=== PATIENT | female | born 1985 | race Caucasian/White ===

== ENCOUNTER 2017-03-13 11:04 | Emergency (ER) | payer OTHER ==
[~2017-03-13] VITALS: Ht 152.4 cm; Wt 55.0 kg
[2017-03-13 11:15] VITALS: BP 153/81; PULSE 121; RESP 18; TEMP 99.2; O2SAT 98
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
[2017-03-13] MEDS ORDERED: LIDOCAINE HCL 1% 50 ML VIAL INFIL ONE (11:45)
[2017-03-13] MEDS ORDERED: LORazepam 2 MG/ML VIAL IM ONE (11:45)
[2017-03-13] MEDS ORDERED: TETANUS/DIPHTHERIA TOXOID ADULT 0.5 ML VIAL IM ONE (11:45)
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
[2017-03-13 13:36] VITALS: BP 121/70; PULSE 100; RESP 18; O2SAT 97
[2017-03-13] MEDS ORDERED: KETOROLAC TROMETHAMINE 60 MG/2 ML (IM) VIAL IM ONE (13:45)
[2017-03-13] MEDS ORDERED: ORPHENADRINE INJ 60 MG/2 ML AMP IM ONE (13:45)
[2017-03-13 14:36] VITALS: RESP 18
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
[2017-03-13] MEDS ORDERED: BACL10TA PO (15:01)
[2017-03-13] MEDS ORDERED: IBUP1TAB7 PO (15:01)
[2017-03-13 16:00] VITALS: BP 124/68
== END 2017-03-13 16:02 | disposition home or self-care (01) ==
LOC: PHED 11:04
DX: M79.605 Pain in left leg (principal); S81.812A Laceration without foreign body, left lower leg, initial encounter; V49.40XA Driver injured in collision with unspecified motor vehicles in traffic accident, initial encounter; Z23 Encounter for immunization
CPT/HCPCS: 12001; 72148; 72170; 73590; 84703; 90471; 90714; 96372; 99285; J1885; J2060; J2360